=== PATIENT | female | born 1965 | race Caucasian/White ===

== ENCOUNTER → 2023-12-19 04:20 | Outpatient (CLI) | payer BC, SELFPAY ==
--- NOTE | 2023-12-18 12:45 | DI.RAD_ITS ---
Exam(s) XR FOREARM RT XR WRIST RT COMPLETE EXAM: XR WRIST RT COMPLETE and XR forearm RT CLINICAL HISTORY: Wrist pain, M25.539, evaluate fx. TECHNIQUE: 2D digital imaging was performed of the right wrist. Five views were obtained. PA, late ral and oblique views were obtained. COMPARISON: CR XR FOREARM RT from 12/18/2023 FINDINGS: BONES: There is an acute oblique fracture through the lateral aspect of the distal radius with extens ion into the radiocarpal joint. No bony destructive lesion is seen. JOINTS: The carpal bones are normally aligned. SOFT TISSUE: Normal. IMPRESSION: Nondisplaced intra-articular fracture of the lateral aspect of the distal right radius. DATA REPOSITORY: RADIATION DOSE DELIVERED:
== END ==
PROVIDERS: Visit Provider Nurse Practitioner Family
DX: S52.571A Other intraarticular fracture of lower end of right radius, initial encounter for closed fracture (principal); X58.XXXA Exposure to other specified factors, initial encounter
CPT/HCPCS: 73090; 73110